=== PATIENT | male | born 1960 | race Caucasian/White ===

== ENCOUNTER → 2020-09-08 15:07 | Outpatient (CLI) | payer OTHER, SELFPAY ==
--- NOTE | 2020-09-08 15:34 | MRI_ITS ---
STUDY: MRI RIGHT SHOULDER REASON FOR EXAM: Pulling injury of the right shoulder in July, strain, rotator cuff tear. TECHNIQUE: Standardized fat and water weighted pulse sequences were obtained in all 3 orthogonal planes. COMPARISON: None. FINDINGS: There is postoperative scarring of the supraspinatus tendon and a small full-thickness fluid-filled gap of the supraspinatus tendon (T2 coronal image 11) measuring approximately 0.9 x 0.2 cm (length x width). There is postoperative scarring of the infraspinatus tendon without a fluid-filled gap to indicate recurrent tendon tear. There is mild subscapularis tendinosis (proton-density axial image 12) without discrete tendon tear. Normal teres minor tendon. Normal supraspinatus muscle. Normal infraspinatus muscle. Normal subscapularis muscle. Normal teres minor muscle. Normal glenohumeral articulation. There are anchors in the humeral head. There is nonvisualization of the intracapsular long biceps tendon, either secondary to biceps tenotomy or tear. There is attrition of the superior labrum, likely secondary to debridement. Normal capsulo- ligamentous complex. There is acromioclavicular arthrosis with a small undersurface osteophyte of the distal clavicle effacing the subacromial fat (T2 sagittal image 15). There is a Type II morphology (curved), with a neutral orientation. There is a very small volume of subacromial-subdeltoid bursal fluid. Normal deltoid muscle. Normal trapezius muscle. MRI/Upper Ext Joint Only(Routine) IMPRESSION: Small recurrent full-thickness tear and postoperative scarring of the supraspinatus tendon. Mild subscapularis tendinosis. Nonvisualization of the intracapsular long biceps tendon, either secondary to biceps tenotomy or tear. Acromioclavicular arthrosis. Small volume of subacromial-subdeltoid bursal fluid. Electronically Signed: Aravind Saxena MD at 8:51 EST Tel , Service support ,
== END ==
PROVIDERS: Referring Provider Chiropractor; Visit Provider Chiropractor
DX: S43.421A Sprain of right rotator cuff capsule, initial encounter (principal); S46.011A Strain of muscle(s) and tendon(s) of the rotator cuff of right shoulder, initial encounter; S49.91XA Unspecified injury of right shoulder and upper arm, initial encounter
CPT/HCPCS: 73221

== ENCOUNTER 2021-09-03 17:30 | Outpatient (RCR) | payer OTHER, SELFPAY ==
--- NOTE | 2021-08-10 19:29 | HP.PTEVAL ---
Patient's Visit Information CELY RODRIGUEZ is a 61 year old M referred to Physical Therapy by Dr. Harrison Salcedo MD with a diagnosis of S/P LUMBAR FUSION L3-S1. Date of Evaluation: 08/10/21 Physical Therapist: Zoran Jacobson, PT, Cert MDT, OCS - Visit Plan Frequency: 5x /Week Duration: 6 Weeks Plan: PT INTERVETION DLS ,POSTURAL EX'S,FUNCTIONAL STRENGTHENING ,UE/LE,AND LUMBAR ROM/LE FLEXABLITY - Subjective This 61 y/o male presents to physical therapy with S/P L3-S1 LUMBAR FUSION on March [address] Salcedo at [facility]. Patient d/c with TLSO brace 3 months . Patient had H/O lumbar fusion 2014 L4-5. Then most recently 2019 noticed radicular symptoms right left . Thus had MRI showed DDD/stenosis. Prior to surgery conservative treatment. Patient seen multiple times had x-rays which showed healing. Most recently 07/30/21 recommended PT. Currently ,patient has achy lumbar and no radicular symptoms. Patient has RTW no restrictions last Tuesday. Aggravating factors none. Alleviating pain MEDS as needed. ,rest. Patient condition of surgery affects condition and endurance,. SOCAIL: . VOACTION: [facility]. Denies paresthesia/tingling.Bowel/baldder -. Coughing /sneezing - Objective POSTURE: mild forward posture. GAIT: reciprocal pattern. NEURO: denies paresthesia/tingling ,reflexes L3-4,L4-5,L5-S1 2/5. SYMTRIES: align. PALPATION: unremarkable. FLEXABLITY: hams WFL. MMT: quads/hams 4/5,hip flexion 4/5,ankle 4/5. LUMBAR ROM: flexion min/mod loss, extension mod loss ,side glides min loss - Special Tests L/S Slump test left side: Negative L/S Slump test right side: Negative L/S Left Straight Leg Raise: Negative L/S Right Straight Leg Raise: Negative - Balance/Special Test Scores Oswestry Low Back Score: 13 - Goals Goal 1:: I with HEP for lumbar fusion Goal Time Frame: 4-6 Weeks Goal 2:: Patient to improve posture/body mechanics for ADLS Goal Time Frame: 4-6 Weeks Goal 3:: Patient to improve lumbar ROM for function of recovery Goal Time Frame: 4-6 Weeks Goal 4:: Patient to demonstrate 75% improvement with return to prior level of function. Goal Time Frame: 4-6 Weeks Goal 5:: Patient to improve back owestry score by 5 points to improve QOL Goal Time Frame: 4-6 Weeks - Rehabilitation Potential Physical Therapy Diagnosis: This patient has lumbar fusion in Mar 2021 with impairments with decondition , decrease lumbar ROM ,and strength for job demands and housework tasks . Rehabilitation Potential: Good - Anticipated Interventions Patient/Client Instruction: Educate patient on: Condition, Plan of Care For the Purpose of:: To decrease pain, To increase ROM, To improve muscle performance and motor function, To increase tolerance to activity/condition/position, To improve ability of physical actions for home/community/work/leisure, To improve health of tissue, To decrease soft tissue restriction, To increase flexibility/ROM Therapeutic Exercise to Include: Strength training, Endurance training, Body mechanics, Postural training, Flexibilty training, Dynamic Lumbar Stabilization For the Purpose of:: To increase ROM, To improve muscle performance and motor function, To increase tolerance to activity/condition/position, To improve ability of physical actions for home/community/work/leisure, To increase flexibility/ROM, To improve endurance Thank you for the opportunity to evaluate your patient. For Medicare and Medicare HMO plans, please review the plan of care and approve it. It will need to be FAXED BACK to us at [phone] for Medicare purposes. For Medicare only, by signing this I certify the plan of care. Please let me know if there are questions or concerns regarding this plan of care. Physician Signature: Date:
--- NOTE | 2021-12-01 10:21 | HP.PT.NRP ---
CELY RODRIGUEZ was seen in my office for initial evaluation on 08/10/21. The following Plan of Care was established for this patient: Initial Frequency: 2x /Week Initial Duration: 6 Weeks Patient/Client Instruction: Educate patient on: Condition, Plan of Care For the Purpose of:: To decrease pain, To increase ROM, To improve muscle performance and motor function, To increase tolerance to activity/condition/position, To improve ability of physical actions for home/community/work/leisure, To improve health of tissue, To decrease soft tissue restriction, To increase flexibility/ROM Therapeutic Exercise to Include: Strength training, Endurance training, Body mechanics, Postural training, Flexibilty training, Dynamic Lumbar Stabilization For the Purpose of:: To increase ROM, To improve muscle performance and motor function, To increase tolerance to activity/condition/position, To improve ability of physical actions for home/community/work/leisure, To increase flexibility/ROM, To improve endurance This patient was last seen in our office . Pertinent comments regarding their Physical therapy will appear below: Patient was seen for PT 4 visits s/p lumbar fusion focusing on DLS and postural strengthening doing well huis d/c At this point I will be discontinuing this patient from physical therapy. I would be happy to see this patient again in the future if found appropriate by the physician. Thank you! Zoran Jacobson, PT, Cert MDT, OCS Balance/Gait/Functional tests - Balance/Special Test Scores Oswestry Low Back Score: 5
== END 2021-09-03 19:00 | disposition home or self-care (01) ==
LOC: PT 17:30
DX: Z47.89 Encounter for other orthopedic aftercare (principal); M96.1 Postlaminectomy syndrome, not elsewhere classified; Z98.1 Arthrodesis status
CPT/HCPCS: 97110; 97161

== ENCOUNTER → 2023-03-29 | Outpatient (CLI) | payer OTHER, SELFPAY ==
--- NOTE | 2023-03-30 05:42 | PFTCOMP_ITS ---
COMPLETE PULMONARY FUNCTION TEST INTERPRETATION Brief HPI: Patient is a 62-year-old male, currently under the care of Dr. Daugherty, who presents to [facility] for complete pulmonary function tests secondary to diagnosis of dyspnea. Respiratory therapist reports good effort and reproducible results. Interpretation: Forced expiration spirometry shows no large airways obstructive ventilatory defect with an FEV1 of 100% predicted. There is no significant bronchodilator response by strict ATS criteria. Spirograms are of good quality and plateau slowly, indicating slowly emptying areas of the lungs. The respiratory flow volume loop shows decreased expiratory flow rates at high lung volumes consistent with small airways obstruction. Lung volumes by body plethysmography show a total lung capacity at the lower limit of normal at 5.41 L, 83% predicted. All other lung volumes are within normal limits. Diffusion capacity by carbon monoxide is normal at 83% predicted. The airway resistance is normal. No previous pulmonary function tests were available for review. Impression: His pulmonary function tests are grossly within normal limits. Patient does have significant deterioration following bronchodilators. This may be secondary to fatigue, but tracheobronchomalacia could also be present.
== END | disposition home or self-care (01) ==
PROVIDERS: PCP Nurse Practitioner Primary Care; Referring Provider Chiropractor; Visit Provider Chiropractor
DX: J98.9 Respiratory disorder, unspecified (principal)
CPT/HCPCS: 94060; 94726; 94729

== ENCOUNTER → 2023-04-04 | Outpatient (CLI) | payer OTHER, SELFPAY ==
--- NOTE | 2023-04-04 16:15 | RAD_ITS ---
INDICATION: RESPIRATORY COMPLAINTS EXAMINATION/TECHNIQUE: X-RAY - XR Chest 2 Views COMPARISON: FINDINGS: LINES/DEVICES: None. LUNGS: No consolidation. No pneumothorax. MEDIASTINUM: Unremarkable. CARDIAC SILHOUETTE: Not enlarged. BONES AND SOFT TISSUES: Degenerative changes of the dorsal spine. Surgical hardware in the lumbar spine partially included, and surgical anchors at the bilateral humeral heads. RAD/Chest PA and Lateral IMPRESSION: No evidence of active intrathoracic disease. Electronically Signed: Gisele Pittman MD at 4:33 EDT ,
== END | disposition home or self-care (01) ==
LOC: RAD 16:12
PROVIDERS: PCP Nurse Practitioner Primary Care; Referring Provider Chiropractor; Visit Provider Chiropractor
DX: J98.9 Respiratory disorder, unspecified (principal)
CPT/HCPCS: 71046

== ENCOUNTER 2023-07-12 14:42 | Emergency (ER) | payer OTHER, SELFPAY ==
[2023-07-12 14:42] VITALS: BP 125/106; PULSE 80; RESP 18; TEMP 35.9; O2SAT 98
--- NOTE | 2023-07-12 14:56 | EX.ED.DYSGE1 ---
HPI <KARY Baer - Last Filed: 07/12/23 18:00> History of Present Illness Chief Complaint: Back Narrative Narrative: 62-year-old male had a right shoulder replacement on July [address] Aguilar at [facility]. Yesterday he developed pain in between his shoulder blades which worsened today and feels like a constant sharp pickax between his shoulders. Pain does not radiate. No chest pain, shortness of breath, cough, fever or chills. He states his right shoulder pain is no worse and he is on Percocet every 6 hours. PFSH <KARY Baer - Last Filed: 07/12/23 18:00> PFS Home Medications tizanidine 4 mg tablet 4 mg PO Q8H PRN muscle spasticity 7 days #21 tabs 07/12/23 [Rx Last Taken Unknown] Allergy/AdvReac Type Severity Reaction Status Date / Time No Known Allergies Allergy Verified 07/12/23 14:44 Surgical History History of shoulder replacement Social History Smoking Status: Current every day smoker tobacco type: cigarettes ROS <KARY Baer - Last Filed: 07/12/23 18:00> ROS ED ROS Narrative Constitutional: Negative for fever, chills, malaise. CVS: Negative for palpitations, chest pain, syncope. Respiratory: Negative for shortness of breath, cough. GI: Negative for abdominal pain, nausea, vomiting. Neuro: Negative for headache, motor/sensory dysfunction. EXAM <KARY Baer - Last Filed: 07/12/23 18:00> Physical Exam Narrative Exam Narrative: CONST: Patient sitting in no acute distress. EYES: Normal inspection. NECK: Normal inspection. RESP: No respiratory distress, CTAB. CVS: Regular rate and rhythm, no murmur, no gallop. ABD: Soft and nontender, no guarding or rebound, nondistended. Back: Normal inspection, tender over thoracic muscles. No midline tenderness or step-off. No skin changes SKIN: Color normal, no rash, warm, dry, intact. EXTREMITIES: Normal appearance, no pedal edema. 2+ radial and DP pulses. NEURO: Oriented x4. PSYCH: Normal affect. Const Vital Signs: 07/12/23 14:42 07/12/23 18:27 07/12/23 18:28 Temperature 96.7 F L Temperature Source Temporal Pulse Rate 80 67 70 Respiratory Rate 18 13 14 Blood Pressure 125/106 H 109/77 109/77 Blood Pressure Mean 112 87 87 Pulse Ox 98 93 94 Oxygen Delivery Method Room Air Room Air <Dr. Justyna Austin DO - Last Filed: 07/12/23 19:01> Physical Exam Const Vital Signs: 07/12/23 14:42 07/12/23 18:27 07/12/23 18:28 Temperature 96.7 F L Temperature Source Temporal Pulse Rate 80 67 70 Respiratory Rate 18 13 14 Blood Pressure 125/106 H 109/77 109/77 Blood Pressure Mean 112 87 87 Pulse Ox 98 93 94 Oxygen Delivery Method Room Air Room Air MDM <KARY Baer - Last Filed: 07/12/23 18:00> [facility] Narrative Medical decision making narrative: History gathered from: Patient and spouse Patient presents with mid back pain x2 days. He is postop day 5 from a right shoulder replacement. He has no chest pain or shortness of breath. He appears well and nontoxic. Vital signs are stable. He has a normal cardiopulmonary exam. He is slightly tender over the thoracic back muscles and seems to have spasms of pain. This may be musculoskeletal; however, since he is postoperative he is high risk for PE and this will be ruled out. EKG is normal sinus rhythm with no ischemic changes and troponin is 4. CBC shows white count 11.4 and hemoglobin of 12.6. Sodium is 128 with normal renal function. He has no prior labs on file. [facility] records from October 2022 show hemoglobin was 14.5?I suspect it is now lower from recent surgery. Prior sodium was 136. He is not symptomatic from hyponatremia. I will give 1 L IV fluids and he can have this rechecked next week with his primary care doctor. CTA of the chest is negative for PE or acute findings. He has some subcutaneous gas right anterior chest from the recent shoulder replacement. X-ray of the shoulder shows normal alignment of postoperative shoulder replacement. Patient was treated with IV morphine, Valium, and Toradol. He states the spasms have lessened but not completely gone away. I tried to reach his orthopedic surgeon by the line just keeps ringing and cannot reach anybody. I prescribed tizanidine, he can continue his home Percocet, and he should speak to his surgeon tomorrow regarding if NSAIDs are appropriate postop. He was comfortable with this plan and discharged in stable condition. Lab Data Attestation: I reviewed the patient's lab results. Labs: Laboratory Results - last 24 hr 07/12/23 15:06 WBC 11.4 H RBC 3.94 L Hgb 12.6 L Hct 39.7 L MCV 100.8 H MCH 32.0 MCHC 31.7 L RDW Std Deviation 50.8 H RDW Coeff of [place] 13.8 Plt Count 291 MPV 9.1 Immature Gran % (Auto) 0.700 Neut % (Auto) 69.0 Lymph % (Auto) 16.7 L [place] % (Auto) 12.4 H Eos % (Auto) 0.7 Baso % (Auto) 0.5 Absolute Neuts (auto) 7.9 H Absolute Lymphs (auto) 1.90 Nucleated RBC % 0 Sodium 128 L Potassium 4.2 Chloride 97 L Carbon Dioxide 22.0 Anion Gap 9 BUN 11 Creatinine 0.76 Est GFR (MDRD) Af Amer 134 Est GFR (MDRD) Non-Af 110 BUN/Creatinine Ratio 14.5 Glucose 102 Calcium 9.0 Troponin I High Sens 4 Radiography Diagnostic Testing: Clinical Impression(s) from Imaging Studies Chest CTA 07/12/23 15:03 IMPRESSION: Bibasilar subsegmental atelectasis. Subcutaneous gas right anterior chest. Right shoulder arthroplasty. Electronically Signed: Derke Villa MD at 17:13 EST Reading Location ID and State: [facility] / [place] Tel , Service support , Shoulder X-Ray 07/12/23 16:05 IMPRESSION: Right shoulder arthroplasty Electronically Signed: Derek Villa MD at 16:42 EST , ED attending interpretation of right shoulder x-ray shows right shoulder arthroplasty in normal alignment EKG Initial EKG: Attestation: I personally reviewed and interpreted this EKG as follows: Interpretation: Sinus Rhythm and No Acute Injury Pattern Comments: Normal sinus rhythm at 70 bpm Normal intervals, no STEMI criteria <Dr. Justyna Austin DO - Last Filed: 07/12/23 19:01> [facility] Lab Data Labs: Laboratory Results - last 24 hr 07/12/23 15:06 WBC 11.4 H RBC 3.94 L Hgb 12.6 L Hct 39.7 L MCV 100.8 H MCH 32.0 MCHC 31.7 L RDW Std Deviation 50.8 H RDW Coeff of [place] 13.8 Plt Count 291 MPV 9.1 Immature Gran % (Auto) 0.700 Neut % (Auto) 69.0 Lymph % (Auto) 16.7 L [place] % (Auto) 12.4 H Eos % (Auto) 0.7 Baso % (Auto) 0.5 Absolute Neuts (auto) 7.9 H Absolute Lymphs (auto) 1.90 Nucleated RBC % 0 Sodium 128 L Potassium 4.2 Chloride 97 L Carbon Dioxide 22.0 Anion Gap 9 BUN 11 Creatinine 0.76 Est GFR (MDRD) Af Amer 134 Est GFR (MDRD) Non-Af 110 BUN/Creatinine Ratio 14.5 Glucose 102 Calcium 9.0 Troponin I High Sens 4 Radiography Diagnostic Testing: Clinical Impression(s) from Imaging Studies Chest CTA 07/12/23 15:03 IMPRESSION: Bibasilar subsegmental atelectasis. Subcutaneous gas right anterior chest. Right shoulder arthroplasty. Electronically Signed: Derek Villa MD at 17:13 EST Reading Location ID and State: [facility] / [place] Tel , Service support , Shoulder X-Ray 07/12/23 16:05 IMPRESSION: Right shoulder arthroplasty Electronically Signed: Derek Villa MD at 16:42 EST Reading Location ID and State: [place] / [place] Tel , Service support , Treatment and Re-Evaluation :: I have personally performed a face to face assessment of the patient and have reviewed the GEORGE Note. I performed a substantive portion of the visit including all aspects of the following. My mendiola findings include: History is patient is a 62-year-old male presenting with midthoracic back pain. He is 5 days status post right shoulder arthroplasty performed at [facility]. Pain started yesterday become more severe today. He states he gets episodes of pain that feels like he is being stabbed in his back. He is taking Percocet with no relief. It was for specially bad when he tried to bend over to move the toilet seat lid. Denies any difficulty breathing. No other complaint at this time. Patient is evaluated for pain. I suspect the pain is more associated with spasm however given his postoperative status pulmonary emboli is also on the differential. Cardiopulmonary work-up is obtained which is largely negative. Physical exam is benign except for his back pain. Its not highly reproducible but does seem reproduced with intentional movement. He does have some atelectasis on the lungs with no signs of pulmonary bladder pneumonia. Troponin is normal. He is mildly hyponatremic with a sodium of 128 and is given a liter of IV fluids in the emergency room. We did attempt to page [facility] to speak with on-call multiple times were unable to get through. At this time I do not think patient requires emergent orthopedic evaluation or medicine admission. We discharged home with a prescription for muscle relaxer. Of in the ER is given 2 doses of morphine, Zofran, Toradol and diazepam with improvement of his symptoms's. Other additions or changes: [None] Discharge Plan Triage Chief Complaint: Back ED Midlevel Provider: Nela Ohara ED Provider: Justyna Austin Dx/Rx/DC Orders Clinical Impression: Muscle spasm, Back pain Instructions: ED Muscle Spasm Prescriptions: New tizanidine 4 mg tablet 4 mg PO Q8H PRN (Reason: muscle spasticity) 7 Days Qty: 21 0RF Primary Care Provider: Frank Dao NP Referrals: Frank Dao NP, [employer]ING [employer] [Primary Care Provider] - Activity Restrictions/Additional Instructions: Please follow-up with your surgeon as scheduled. You can take a muscle relaxer as needed. Use heat or ice on the area. Call your orthopedic doctor tomorrow to see if you are allowed to take ibuprofen. Disposition Disposition: Home, Self Care Discharge Date/Time: 07/12/23 18:46
--- NOTE | 2023-07-12 15:03 | CT_ITS ---
STUDY: CTA CHEST REASON FOR EXAM: Male, 62 years old. back pain, recent surgery RADIATION DOSAGE (If Supplied By Facility): CTDIvol = ( 12.07 ) mGy, DLP = ( 406.56 ) mGycm TECHNIQUE: The examination was performed with the intravenous administration of IV 100mL Isovue-370. Post-processing of the angiographic images was performed, with multiplanar reformation and 3D reconstruction. Individualized dose optimization techniques were used for this CT. COMPARISON: Chest x-ray April 04, 2023. FINDINGS: Normal enhancement of the main pulmonary artery and right and left pulmonary arteries. Normal enhancement of the bilateral peripheral pulmonary arteries. There is no demonstrated pulmonary embolism. Normal thoracic aorta and visualized great vessels. There is no demonstrated aortic dissection. Normal heart and pericardium. Normal mediastinum. Normal hilar regions. Normal visualized trachea and bronchi. Bibasilar subsegmental atelectasis. Normal pulmonary parenchyma. Normal pleura. Normal chest wall structures. Subcutaneous gas right anterior chest wall. Right shoulder arthroplasty. Hardware left humeral head. Normal osseous structures. Normal visualized upper abdomen. CT/CTA Chest W/WO Contrast IMPRESSION: Bibasilar subsegmental atelectasis. Subcutaneous gas right anterior chest. Right shoulder arthroplasty. Electronically Signed: Derek Villa MD at 17:13 [facility] ,
[2023-07-12] MEDS: Morphine 4 MG/ML Syringe IV ×2 (15:06→16:15)
[2023-07-12] MEDS: Ondansetron 4 MG/2 ML Vial IV (15:07)
[2023-07-12 15:20] LABS: Absolute Neutrophil Count 7.9 X10^3/uL (2.0-7.7); Basophil# 0.06 X10^3/uL; Basophil% 0.5 % (0-1); Eosinophil# 0.08 X10^3/uL; Eosinophils% 0.7 % (0-5); Hematocrit 39.7 % (40-54); Hemoglobin 12.6 g/dL (13.0-16.5); Lymphocyte % 16.7 % (19-41); Mean Corp Hgb Conc 31.7 g/dL (32-36); Mean Corpuscular Volume 100.8 fL (80-94); Mean Platelet Vol. 9.1 fl (6.2-12.0); Monocyte# 1.41 X10^3/uL; Monocyte% 12.4 % (0-10); NRBC Flagged by Analyzer 0 % (0-5); Neutrophil # 7.87 X10^3/uL (2.7-7.7); Platelet Count 291 K/mm3 (150-450); RBC Distribution Width CV 13.8 % (11.6-14.6); RBC Distribution Width SD 50.8 fl (35.1-43.9); Red Blood Count 3.94 M/mm3 (4.6-6.2); White Blood Count 11.4 K/mm3 (4.4-11.0)
[2023-07-12 15:39] LABS: Anion Gap 9 (5-15); BUN 11 mg/dL (7-18); BUN/Creat Ratio 14.5 RATIO (10-20); Chloride 97 mmol/L (98-107); Creatinine, Serum 0.76 mg/dL (0.70-1.30); EST Glomerular Filtration Rate 110 mL/min (>60); Est Glom Filt Rate - Afr Amer 134 mL/min (>60); Glucose 102 mg/dL (74-106); Potassium 4.2 mmol/L (3.5-5.1); Sodium Level 128 mmol/L (136-145); Troponin-I HS 4 pg/mL (3.0-78.0)
--- NOTE | 2023-07-12 16:05 | RAD_ITS ---
STUDY: X-RAY - RIGHT SHOULDER REASON FOR EXAM: Male, 62 years old. pain TECHNIQUE: 2 view(s) of the shoulder. COMPARISON: MR shoulder September 08, 2020 FINDINGS: Reverse shoulder arthroplasty in anatomic alignment. Periarticular calcifications noted. Normal acromioclavicular joint. Normal acromion. Normal humeral head and visualized proximal humerus. The soft tissue structures are unremarkable. Normal visualized pulmonary apex. RAD/Shoulder min 2 Views IMPRESSION: Right shoulder arthroplasty Electronically Signed: Derek Villa MD at 16:42 EST ,
[2023-07-12] MEDS: diazePAM 5 MG Tablet PO (16:14)
[2023-07-12] MEDS: 0.9% Normal Saline (1000mL) 1,000 ML 999 ML IV (16:36)
[2023-07-12] MEDS: Ketorolac 30 MG/ML Syringe IV (16:59)
[2023-07-12 18:27] VITALS: BP 109/77; PULSE 67; RESP 13; O2SAT 93
[2023-07-12 18:28] VITALS: BP 109/77; PULSE 70; RESP 14; O2SAT 94
== END 2023-07-12 18:46 | disposition home or self-care (01) ==
PROVIDERS: Physician Assistant; Emergency Provider Emergency Medicine; PCP Nurse Practitioner Primary Care; Visit Provider Emergency Medicine
DX: M62.838 Other muscle spasm (principal); M54.6 Pain in thoracic spine; F17.210 Nicotine dependence, cigarettes, uncomplicated; Z96.611 Presence of right artificial shoulder joint; J98.11 Atelectasis
CPT/HCPCS: 71275; 73030; 80048; 84484; 85025; 93005; 96361; 96374; 96375; 96376; 99282; J7030; Q9967; A4216; J2405